=== PATIENT | female | born 2000 | race Two or more races ===

== ENCOUNTER 2022-03-17 20:27 | Emergency (ER) | payer OTHER ==
[~2022-03-17] VITALS: Ht 160 cm; Wt 53.6 kg
[~2022-03-17 20:27] MED LIST: ACET500C4 PO; SULF1TAB42 PO; [UNRECOGNIZED DRUG - OTHER] PO
[2022-03-17] MEDS ORDERED: PROPARACAINE HCL 0.5% 15 ML OPHTHALMIC SOLUTION OD ONE (20:45)
[2022-03-17] MEDS ORDERED: FLUORESCEIN SODIUM 1 MG STRIP OD ONE (20:45)
[2022-03-17] MEDS ORDERED: ERYTHROMYCIN 0.5% 3.5 GM TUBE OPHTHALMIC OINTMENT OD ONE (20:45)
[2022-03-17 22:00] VITALS: BP 122/80
[2022-03-17] MEDS ORDERED: CIPR10DR10 OD (22:26)
[2022-03-17] MEDS ORDERED: CILOOO OD (22:26)
== END 2022-03-17 22:46 | disposition home or self-care (01) ==
LOC: EMS 20:59
DX: H16.001 Unspecified corneal ulcer, right eye (principal); T15.01XA Foreign body in cornea, right eye, initial encounter
CPT/HCPCS: 99283